=== PATIENT | male | born 1980 | race Caucasian/White ===

== ENCOUNTER → 2019-05-04 | Outpatient (CLI) | payer OTHER ==
--- NOTE | 2019-05-08 08:32 | PF ---
[address] [address] PULMONARY FUNCTION REPORT Name: GEORGETTEAHMET Room: [facility]#: [id number] Admission: 05/04/19 Attend Phys: KACI JOHANSEN Discharge: Date of : 78 Report #: [id number] THIS REPORT FOR: //name// CC: KACI WINSLOW DATE OF SERVICE: 05/04/2019 REQUESTING NURSE PRACTITIONER: Kaci Winslow Spirometry reveals a normal FEV1 at 3.59, FVC of 4.71. The FEV1/FVC ratio is 76%. Mid flows are normal. No significant change seen after inhaled bronchodilator. Lung volumes by plethysmography reveal a normal TLC. There is just a very minimal increase in residual volume. Diffusion capacity is normal. IMPRESSION: Normal pulmonary function studies without evidence of a significant obstructive or restrictive process. <ELECTRONICALLY SIGNED> By: Kym Waggoner MD 05/08/19 [id number] Waggoner MD /nt
== END ==
LOC: M.PUL 04-27 09:30
DX: R06.00 Dyspnea, unspecified (principal)